=== PATIENT | male | born 1995 | race Caucasian/White ===

== ENCOUNTER 2024-11-03 17:58 | Emergency (ER) | payer MEDICAID ==
[~2024-11-03] VITALS: Ht 175.3 cm; Wt 77.1 kg
[2024-11-03 18:26] VITALS: BP 123/68; TEMP 98.7; O2SAT 99
[2024-11-03] MEDS ORDERED: KETOROLAC TROMETHAMINE 15 MG/ML VIAL ONE (22:32)
[2024-11-03] MEDS: KETOROLAC TROMETHAMINE 15 MG/ML VIAL IM ONE (22:36)
[2024-11-03] MEDS ORDERED: IBUP-1490 PO (22:54)
== END 2024-11-03 23:15 | disposition home or self-care (01) ==
LOC: ER 18:06
DX: M54.9 Dorsalgia, unspecified (principal); M79.606 Pain in leg, unspecified
CPT/HCPCS: 99283; 96372; J1885